=== PATIENT | male | born 1955 | race Caucasian/White ===

== ENCOUNTER 2019-06-11 09:19 | Day surgery (SDC) | payer OTHER ==
[~2019-06-11 09:19] MED LIST: ACET325 PO; BACL10 PO; BUPR75 PO; Bentyl20 MG PO; CALCAVITDA PO; CAPS28.3TC TOP; CHLO25B PO; Coumadin5 MG PO; DIAZ5 PO; GABA600 PO; LEVO750 PO; LISI20 PO; MIRT15 PO; MORP15ER PO; OXYC5 PO; QUET25 PO; WARF7.5 PO
[2019-06-11 10:50] LABS: Performing Lab VERACYTE; Test Name FNA
[2019-06-15 10:41] LABS: Result SEE PATHOTH RESULTS
== END 2019-06-11 23:59 | disposition home or self-care (01) ==
LOC: US 09:19
PROVIDERS: Nurse Practitioner
DX: E04.1 Nontoxic single thyroid nodule (principal)
CPT/HCPCS: 10005